=== PATIENT | male | born 1965 | race Caucasian/White ===

== ENCOUNTER → 2016-09-22 | Outpatient (CLI) | payer BC ==
[~2016-09-22] MED LIST: BACITRACIN15 G1 TP; COLACE-DPS100 MG PO; PERCOCET 5 DPS1 TAB PO; PROTONIX20 MG PO; THERAPEUTIC MUL1 TAB PO; TYLENOL DPS325 MG PO; VALIUM-DPS5 MG PO
== END | disposition home or self-care (01) ==
LOC: RAD.S 07:25
DX: M54.12 Radiculopathy, cervical region (principal); M47.812 Spondylosis without myelopathy or radiculopathy, cervical region

== ENCOUNTER 2016-10-04 06:22 | Observation (INO) | payer BC ==
[~2016-10-04] VITALS: Ht 182.9 cm; Wt 121.0 kg
--- NOTE | ~2016-10-04 | DS ---
ADMIT: 10/04/2016 RM/LOC: [address] [facility] MR#: [id number] [id number] [facility] [address] [place] [id number] [address] [place] [address] Discharge Summary SEX: M AGE: 51 : 1965 ADMISSION DATE: 10/04/2016 DISCHARGE DATE: 10/05/2016 REASON FOR ADMISSION: 1. Cervical spondylosis. 2. Cervical myelopathy. 3. Numbness and tingling. 4. Cervical stenosis. PROCEDURES: Anterior cervical diskectomy and fusion at cervical 4-5. HOSPITAL COURSE: Mr. Rodríguez tolerated his procedure well. Postoperatively, he was taken to the Med/Surg floor for monitoring and care. He did work with Physical Therapy and Occupational Therapy and did this quite well. Postop day number one, he was awake and alert. He was oriented x4. He was moving all extremities x4. His incision was clean, dry, and intact, and no hematoma or cerebrospinal fluid accumulation was noted. He was ambulating, urinating, and defecating per his norm and was requesting discharge home. DISCHARGE CONDITION: Good. MEDICATIONS: 1. Colace 100 mg p.o. b.i.d. 2. Bacitracin ointment to his incision q.p.m. x14 days. 3. Percocet 5/325, 1-2 p.o. q.4 hours p.r.n. 4. Valium 5 mg 1-2 tablets p.o. q.8 hours p.r.n. 5. Tylenol 650 mg p.o. q.4 hours p.r.n. 6. Protonix daily. 7. Sbyh-fkb-rihjnpz vitamins daily. DISCHARGE INSTRUCTIONS: (Per Dr. Samayoa) He can have a regular diet. He may remove his dressing starting tomorrow. He ADMIT: 10/04/2016 RM/LOC: [address] [facility] MR#: [id number] [address] [id number] [address] [place] [address] Discharge Summary SEX: M AGE: 51 : 1965 may shower starting tomorrow. He should not take any tub baths. He should pat his incision dry. He should not lift anything greater than 15 pounds. He should not take any NSAIDs. He should not drive until he is seen in clinic in two weeks. He will call with any questions or concerns including neurological worsening, signs or symptoms of infection, or any other issues. FOLLOWUP: He will follow up with Nikki in clinic in two weeks. DISPOSITION: He was discharged home. Total gcae-lq-oalp time for the discharge planning and care coordination was 30 minutes. Nikki Woodward APRN / Iam Samayoa MD / njv JOB #: [id number] CC: Iam Samayoa MD, Attending Physician Torrey Goins MD, Family Physician
[2016-10-06] MEDS ORDERED: THERAPEUTIC MUL1 TAB PO (18:52)
[2016-10-06] MEDS ORDERED: PROTONIX20 MG PO (18:52)
[2016-10-06] MEDS ORDERED: COLACE-DPS100 MG PO (18:52)
[2016-10-06] MEDS ORDERED: TYLENOL DPS325 MG PO (18:53)
[2016-10-06] MEDS ORDERED: PERCOCET 5 DPS1 TAB PO (18:53)
[2016-10-06] MEDS ORDERED: BACITRACIN15 G1 TP (18:53)
[2016-10-06] MEDS ORDERED: VALIUM-DPS5 MG PO (18:54)
--- NOTE | 2016-10-08 09:58 | OR ---
ADMIT: 10/04/2016 RM/LOC: 519 [facility] MR#: [id number] [address] [id number] [place] [address] Operative/Delivery Room Report SEX: M AGE: 51 : 1965 SURGERY DATE: 10/04/2016 SURGEON: Iam Samayoa MD PREOPERATIVE DIAGNOSIS: Cervical stenosis, 4-5 with myelomalacia and myelopathy. POSTOP DIAGNOSIS: Cervical stenosis, 4-5 with myelomalacia and myelopathy. PROCEDURES: 1. Anterior cervical diskectomy with wide decompression, cervical 4-5. 2. Anterior cervical arthrodesis, 4-5 with structural allograft placed in the intervertebral space. 3. Anterior instrumentation, cervical 4 on 5. [employer] ARCHITECT: Nikki Woodward APRN DESCRIPTION OF PROCEDURE: After gaining informed consent, patient was taken to the operative theater, placed under general endotracheal anesthesia in supine position. A time-out was utilized to ascertain the correct site and side of surgery as well as other pertinent patient historical information. Counts were obtained at the beginning and end of the case with no change betwixt the 2. Antibiotics given within 1 hour of the incision. The neck was incised in an already existing crease and this was then taken down to the paratracheal and paraesophageal groove very cautiously with the pristine hemostasis to the anterior spinal column which revealed a very large, exuberant bony osteophyte. This area was marked and found to be consistent with cervical 4-5. Monopolar electrocautery was utilized to take up the medial aspect of the longus coli for placement of Night Nurse retractor system. At this point, the anterior spinal column was gardened back to the true edge of the vertebral bodies resecting this osteophyte as widely as necessary to reveal the disk space. This was heavily calcified without much fresh disk in it, severely stenotic and with the retrolisthesis of 4 on 5 was significant more difficult than usual secondary to the depth, which I had to work to reach the posterior aspect of cervical 4 for as complete decompression as was possible. The bone was drilled out. The ligamentum flavum which was fairly calcified was resected, resecting out into the neural foramen, being able to sound out into the neural foramen and resecting the posterior aspect of the osteophytic lip from the retrolisthetic portion of cervical 4. Once this was done, pristine hemostasis was obtained and everything appeared to be widely decompressed. At this point, a structural 7 lordotic allograft spacer was brought into the field, cautiously tapped into place. Once this was all completed, the anterior spinal column was decorticated at the screw entry sites and vancomycin powder coated the screws were used to supervisor microfilm duplicating unit anterior plate. AP and lateral fluoroscopy revealed 5 level. Attention was turned to closure. Pristine hemostasis was obtained. The wound was closed with simple inverted interrupted 2-0 Vicryl in the hypodermic tissue and subcuticular 3-0 ADMIT: 10/04/2016 RM/LOC: 519 [facility] MR#: [id number] [address] [place] [id number] [address] [place] [address] [place] [address] Operative/Delivery Room Report SEX: M AGE: 51 : 1965 Monocryl with Stratafix on the skin. Ms. Woodward assisted with suction, retraction, and closure at the end of the case. COMPLICATIONS: None. ESTIMATED BLOOD LOSS: 10 mL. SPECIMEN: Disk. DISPOSITION: Extubated and taken to postanesthesia care unit. Iam Samayoa MD/ kanchan JOB #: [id number] CC: Iam Samayoa, Attending Physician Torrey Goins, Family Physician
== END 2016-10-05 12:45 | disposition home or self-care (01) ==
LOC: WOR 06:22 → 5MS 10:03
PROVIDERS: ADMIT Neurological Surgery
PROC: 0RB30ZZ Excision of Cervical Vertebral Disc, Open Approach (ICD-10-PCS; principal; 2016-10-04)
PROC: 0RG10Z0 (ICD-10-PCS; principal; 2016-10-04)
DX: M48.02 Spinal stenosis, cervical region (principal); M47.12 Other spondylosis with myelopathy, cervical region; G95.89 Other specified diseases of spinal cord; K21.9 Gastro-esophageal reflux disease without esophagitis; Z88.0 Allergy status to penicillin; Z98.890 Other specified postprocedural states